=== PATIENT | male | born 1985 | race African-American/Black ===

== ENCOUNTER 2019-12-17 20:08 | Emergency (ER) | payer OTHER ==
[~2019-12-17] VITALS: Ht 175.3 cm; Wt 77.0 kg
[2019-12-17] MEDS ORDERED: BACITRACIN ZINC OINT UDPKT TOP ONE (21:00)
[2019-12-17] MEDS ORDERED: TETANUS, DIPHTHERIA, PERTUSSIS VAC/PF 0.5ML (>7YR OLD) IM ONE (21:00)
[2019-12-17 21:45] VITALS: BP 123/67
== END 2019-12-17 21:46 | disposition home or self-care (01) ==
LOC: ER 20:08
DX: S61.012A Laceration without foreign body of left thumb without damage to nail, initial encounter (principal); W26.0XXA Contact with knife, initial encounter; Y93.89 Activity, other specified; Y92.010 Kitchen of single-family (private) house as the place of occurrence of the external cause
CPT/HCPCS: 90471; 90715; 99283